=== PATIENT | male | born 1955 | race African-American/Black ===

== ENCOUNTER 2019-05-31 18:19 | Emergency (ER) | payer SELFPAY ==
[2019-05-31 18:28] VITALS: BP 167/102; PULSE 75; TEMP 98.7; BMI 25.8
--- NOTE | 2019-05-31 18:44 | PDOC ---
History of Present Illness - General Chief Complaint: CVA/TIA Stated Complaint: RULE OUT CVA Time Seen by Provider: 05/31/19 18:42 - History of Present Illness Initial Comments: The pt is a 63M w/ no reported PMH who presents for evaluation of 2 days of left lower facial droop and left ear pain. The pt denies any other associated symptoms, previous CVA/NM, camping, animals outside, history of facial lesions, HSV, or having this happen in the past. Pt denies fevers/chills, chest pain, trouble breathing, vision changes, N/V/C/D , dysuria, hematuria, rash. 05/31/19 18:54 NIH Stroke Scale - Last Known Well Date/Time & Onset Date Last Known Well: 05/29/19 Time Last Known Well: 00:00 - Initial Evaluation Level of consciousness: Alert Ask patient the month and their age: Answers both correctly Ask patient to open & close eyes; make fist and let go: Obeys both correctly Best gaze (horizontal eye movement): Normal Visual field testing: No visual field loss Facial paresis (Show teeth/raise eyebrows/close eyes tight): Minor paralysis ( flattened nasolabial fold, asymmetry on smiling) (left lower face w/ mild decreased droop; L eyebrow slightly less raised than right) Motor Function: Left Arm: Normal Motor Function: Right Arm: Normal (extends arm 90 (or 45) degrees for 10 seconds without drift Motor Function: Left Leg: Normal (extends leg 30 degrees for 5 seconds without drift) Motor Function: Right Leg: Normal (extends leg 30 degrees for 5 seconds without drift) Limb Ataxia: No ataxia Sensory(Use pinprick test arms,legs,trunk,face/side to side): Normal Best language (Describe picture, name items, read sentences): No Aphasia Dysarthria (read several words): Normal articulation Extinction and Inattention: No abnormality - Total Score NIH Stroke Scale Score: 1 Past History - Past Medical History Allergies/Adverse Reactions: Allergies Allergy/AdvReac Type Severity Reaction Status Date / Time No Known Allergies Allergy Verified 05/31/19 18:28 Home Medications: Ambulatory Orders Eye Patch 1 each MC DAILY #1 each 05/31/19 Polyvinyl Alcohol [Artificial Tears] 1 drop OD TID #1 bottle 05/31/19 Valacyclovir HCl [Valtrex] 1,000 mg PO TID 7 Days #21 tablet 05/31/19 predniSONE [Deltasone -] 60 mg PO DAILY #21 tablet 05/31/19 COPD: No - Psycho Social/Smoking Cessation Hx Smoking History: Never smoked Have you smoked in the past 12 months: No Information on smoking cessation initiated: No Hx Alcohol Use: No Drug/Substance Use Hx: No Review of Systems - Review of Systems Able to Perform ROS?: Yes Comments:: GENERAL/CONSTITUTIONAL: No fever or chills. No weakness HEAD, EYES, EARS, NOSE AND THROAT: No change in vision. No change in hearing. No sore throat CARDIOVASCULAR: No chest pain or shortness of breath RESPIRATORY: Denies cough, hemoptysis GASTROINTESTINAL: No nausea, vomiting, diarrhea or constipation GENITOURINARY: No dysuria, frequency, or change in urination MUSCULOSKELETAL: No joint or muscle swelling or pain. No neck or back pain SKIN: No rash NEUROLOGIC: No headache, vertigo, loss of consciousness, L facial droop ENDOCRINE: No increased thirst. No abnormal weight change HEMATOLOGIC/LYMPHATIC: No anemia, easy bleeding, or history of blood clots ALLERGIC/IMMUNOLOGIC: No hives or skin allergy 05/31/19 18:47 Is the patient limited Sen[place]e proficient: No *Physical Exam - Vital Signs Last Vital Signs Temp Pulse Resp BP Pulse Ox 98.7 F 75 18 167/102 H 97 05/31/19 18:27 05/31/19 18:27 05/31/19 18:27 05/31/19 18:27 05/31/19 18:27 - Physical Exam Comments: GENERAL: Awake, alert, and oriented to person/place/time, in no acute distress HEAD: No signs of trauma, normocephalic, atraumatic EYES: PERRLA, EOMI, sclera anicteric, conjunctiva clear ENT: Hearing grossly normal, nares patent, oropharynx clear without exudates. Moist mucosa LUNGS: No distress, speaks in full sentences, clear to auscultation bilaterally HEART: Regular rate and rhythm, normal S1 and S2, no murmurs appreciated, peripheral pulses normal and equal bilaterally ABDOMEN: Soft, nontender, normoactive bowel sounds. No guarding, no rebound EXTREMITIES: Normal inspection, Normal range of motion, no edema. No clubbing or cyanosis NEUROLOGICAL: Vision grossly intact, EOMI, PERRL, sensation equal in upper and lower face, no tongue or uvular deviation, pt with left eyebrow slightly lower than left when raised, left lower facial droop/flattening of naso-labial fold, no drift in any extremities, and sensation to light touch intact throughout. Normal speech SKIN: Warm, Dry 05/31/19 18:47 ED Treatment Course - LABORATORY CBC & Chemistry Diagram: 05/31/19 18:50 05/31/19 18:50 Medical Decision Making - Medical Decision Making The pt is a 63M w/ no reported PMH who presents for evaluation of 2 days of left facial droop Ddx: [place] vs CVA ED Course Labs sent ECG CT head 05/31/19 18:50 No leukocytosis No anemia CT head w/o acute pathology Symptoms likely 2/2 Veras's Palsy Case discussed with Dr. Hayden, pt will follow up with him tomorrow at 0900 05/31/19 19:28 Rx for artificial tears, eye patch, prednisone 60mg PO daily and valacyclovir 1g PO TID for 7 days sent to pt's pharmacy Pt given first does of Prednisone and Valtrex here 05/31/19 19:46 Lytes wnl No DUNIA LFTs unremarkable Trop I neg Dyslipidemia noted and discussed with pt 05/31/19 20:00 UA w/o evidence of UTI 05/31/19 20:31 Pt w/ taste b/l. Results of labs and overall case discussed w/ Dr. Hayden Plan for D/C w/ Neuro f/u tomorrow at 0900 Discharge instructions and return precautions given Patient in agreement and verbalized understanding Dispo: Home 05/31/19 21:14 Discharge - Discharge Information Problems reviewed: Yes Clinical Impression/Diagnosis: Veras's palsy Condition: Stable - Admission No - Additional Discharge Information Prescriptions: Eye Patch 1 each MC DAILY #1 each Polyvinyl Alcohol [Artificial Tears] 1 drop OD TID #1 bottle predniSONE [Deltasone -] 60 mg PO DAILY #21 tablet Valacyclovir HCl [Valtrex] 1,000 mg PO TID 7 Days #21 tablet - Follow up/Referral Referrals: Indio Hayden MD [Staff Physician] - - Patient Discharge Instructions Patient Printed Discharge Instructions: DI for Veras's Palsy Additional Instructions: You were seen in the Emergency Department for evaluation of left sided facial droop. Your CT and labs were unremarkable. Review the handout provided at discharge. Follow up with Dr. Hayden tomorrow morning at 0900, the contact information is provided. A prescription for Valtrex, steroids, eye drops, and an eye patch were sent to your pharmacy, take as directed. The patch is to use at night only. Return to the Emergency Department if you develop fevers/chills, worsening symptoms, weakness in your arms/legs, changes in sensation, dizziness , change in vision, chest pain, headache, or any new/concerning symptoms. - Post Discharge Activity
--- NOTE | 2019-05-31 19:05 | PDOC ---
Attending Attestation - Resident Resident Name: Elie Ramon - ED Attending Attestation I have performed the following: I have examined & evaluated the patient, The case was reviewed & discussed with the resident, I agree w/resident's findings & plan - HPI HPI: 05/31/19 18:59 63 YOM No medical history Presenting with 2 days of left lower face tingling, left ear pain Last night, associated with left lower facial droop with left ear pain. has also been experiencing bilateral burning in his eyes and difficulty closing his left eye. no trauma. No prior sx. No recent travel, hikes, infection. The pt denies any other associated symptoms, previous CVA/PR, camping, animals outside, history of facial lesions, HSV, or having this happen in the past. Pt denies fevers/chills, chest pain, trouble breathing, vision changes, N/V/C/D , dysuria, hematuria, rash. 05/31/19 18:54 - Physicial Exam PE: 05/31/19 19:00 Agree with the resident's HPI and PE as documented in the electronic medical record. NAD, well appearing, EOMI, PERRL, MMM, nl conjunctiva, anicteric; bilateral T.M clear. no canal without vesicles or lesions. neck supple. lungs clear, RRR, abdomen soft nontender. Back nontender. GALVEZ x4, no focal neuro deficits. No peripheral edema. normal color for ethnicity, WWP. Alert, oriented to person time and place. Strength prox and distally 5/5 throughout. Sensation grossly intact to light touch. GALVEZ x4. No cerebellar signs , no dysmetria, bilateral finger to nose and heel to timmons equal and symmetric. Speech clear. Left nasolabial fold diminished. left furrowing of forehead mildly diminished but present Left lower facial droop on smiling. 5/5 shoulder shrug, 5/5 masseters bilaterally, SILT in V1-3. 06/01/19 22:04 - Medical Decision Making 05/31/19 19:01 See HPI for details. Prior notes reviewed, including admissions, discharges and consultations. Vital signs reviewed, +hypertensive Vital Signs Temp Pulse Resp BP Pulse Ox 98.7 F 75 18 167/102 H 97 05/31/19 18:27 05/31/19 18:27 05/31/19 18:27 05/31/19 18:27 05/31/19 18:27 ddx, central vs peripheral facial nerve palsy, CVA, clinically appears very much like left Vreas's palsy peripheral symptoms from forehead/nasolabial folds. CT head. neuro cs, Dr Hayden. s/o Dr Avelar pending results, reeval and dispo. 06/01/19 22:05
[2019-05-31 19:06] LABS: BASO % 0.9 % (0-2.0); EOS % 1.6 % (0-4.5); HEMATOCRIT 47.8 % (35.4-49); HEMOGLOBIN 15.4 GM/dL (11.7-16.9); LYMPH % 42.4 % (8-40); MCH 29.2 pg (25.7-33.7); MCHC 32.2 g/dl (32.0-35.9); MEAN CELL VOLUME 90.7 fl (80-96); NEUT % 44.1 % (42.8-82.8); RBC 5.28 M/mm3 (4.00-5.60); RDW 15.5 % (11.9-15.9); WHITE BLOOD COUNT 5.7 K/mm3 (4.0-10.0)
[2019-05-31 19:17] LABS: INR 0.92 (0.83-1.09); PROTHROMBIN TIME (PATIENT) 10.9 SEC (9.7-13.0)
[2019-05-31 19:35] LABS: ALBUMIN 4.2 g/dl (3.4-5.0); ALK PHOS 35 U/L (45-117); ANION GAP 8 MMOL/L (8-16); BILIRUBIN,TOTAL 0.3 mg/dL (0.2-1); CALCIUM 8.9 mg/dL (8.5-10.1); CHLORIDE 104 mmol/L (98-107); CHOLESTEROL 221 mg/dL (50-200); CO2 27 mmol/L (21-32); CREATININE 1.1 mg/dL (0.55-1.3); GLUCOSE,RANDOM 92 mg/dL (74-106); HDL CHOLESTEROL 45 mg/dL (40-60); POTASSIUM 4.5 mmol/L (3.5-5.1); SGOT/AST 14 U/L (15-37); SGPT/ALT 42 U/L (13-61); SODIUM 139 mmol/L (136-145); TOT PROT 7.4 g/dl (6.4-8.2)
[2019-05-31] MEDS ORDERED: predniSONE 20 MG TABLET (UD) PO ONE (19:43)
[2019-05-31] MEDS ORDERED: valACYclovir HCL 1000 MG TABLET PO ONE (19:45)
[2019-05-31] MEDS ORDERED: predniSONE 20 MG TABLET (UD) ONE (19:56)
[2019-05-31] MEDS ORDERED: valACYclovir HCL 500 MG TABLET (FP) ONE (19:56)
[2019-05-31 20:10] LABS: PH,URINE 7.5 (5.0-8.0); URINE APPEARANCE CLEAR; URINE BILIRUBIN NEGATIVE (NEGATIVE); URINE COLOR YELLOW; URINE GLUCOSE (UA) NEGATIVE (NEGATIVE); URINE KETONE NEGATIVE (NEGATIVE); URINE LEUK ESTERASE NEGATIVE (NEGATIVE); URINE NITRITE NEGATIVE (NEGATIVE); URINE PROTEIN NEGATIVE (NEGATIVE)
--- NOTE | 2019-06-01 12:19 | EKG ---
Test Reason : Blood Pressure : / mmHG Vent. Rate : 070 BPM Atrial Rate : 070 BPM P-R Int : 168 ms QRS Dur : 108 ms QT Int : 390 ms P-R-T Axes : 009 021 016 degrees QTc Int : 421 ms NORMAL SINUS RHYTHM POSSIBLE LEFT ATRIAL ENLARGEMENT INCOMPLETE RIGHT BUNDLE BRANCH BLOCK NO PREVIOUS ECGS AVAILABLE Confirmed by ANASTASIYA GREER MD ([id number]) on 06/01/2019 12:18:52 PM Referred By: Confirmed By:ANASTASIYA GREER MD
== END 2019-05-31 21:33 | disposition home or self-care (01) ==
LOC: JER 18:19
DX: G51.0 Bell's palsy (principal)
CPT/HCPCS: 36415; 70450-TC; 80053; 81003; 82465; 82550; 83718; 83721; 84478; 84484; 85025; 85610; 86618; 93005; 93010; 99285-25